=== PATIENT | female | born 1955 | race Caucasian/White ===

== ENCOUNTER 2020-10-20 13:37 | Emergency (ER) | payer OTHER ==
[~2020-10-20] VITALS: Ht 147.3 cm; Wt 72.6 kg
[2020-10-20 13:54] VITALS: BP 155/84
[2020-10-20 14:26] LABS: BASO % 0.7 % (0.0-1.0); EOS # 0.1 10*3/uL (0.0-0.4); EOS % 2.1 % (1.0-4.0); HEMATOCRIT 45.7 % (37.0-47.0); LYMPH # 1.3 10*3/uL (1.3-4.4); LYMPH % 21.6 % (27.0-41.0); MEAN CELL VOLUME 91.8 fl (81.0-99.0); MEAN CORPUSCULAR HGB 30.3 pg (27.0-31.0); MEAN PLATELET VOLUME 11.1 fl (9.6-12.3); MONO # 0.6 10*3/uL (0.1-1.0); MONO % 10.3 % (3.0-9.0); NEUT % 64.6 % (47.0-73.0); PLATELET COUNT AUTOMATED 191 10*3/uL (130-400); RED BLOOD COUNT 4.98 10*6/uL (4.10-5.10); RED CELL DISTRI WIDTH 14.2 % (0-14.5); WHITE BLOOD COUNT 6.1 10*3/uL (4.8-10.8)
[2020-10-20 14:42] LABS: ALBUMIN 3.3 gm/dl (3.1-4.5); ALKALINE PHOSPHATASE 133 U/L (45-117); BUN 18 mg/dl (7-24); CHLORIDE 104 mmol/L (98-107); CREATININE 1.01 mg/dL (0.55-1.02); POTASSIUM 4.2 mmol/L (3.5-5.1); SGOT/AST 31 IU/L (3-35); SGPT/ALT 39 U/L (12-78); SODIUM 138 mmol/L (136-145); TOTAL PROTEIN 8.2 gm/dL (6.4-8.2)
[2020-10-20 14:43] LABS: TROPONIN I < 0.015 ng/ml (<0.045)
== END 2020-10-20 16:40 | disposition home or self-care (01) ==
LOC: ED 13:37
PROVIDERS: Family Medicine
DX: R61 Generalized hyperhidrosis (principal); Z88.0 Allergy status to penicillin

== ENCOUNTER 2023-07-09 17:23 | Emergency (ER) | payer OTHER ==
[~2023-07-09] VITALS: Ht 147.3 cm; Wt 68.0 kg
[2023-07-09 17:40] VITALS: BP 152/74
[2023-07-09] MEDS ORDERED: Albuterol Sulf/Ipratropium 3 ML VIAL NEB ONE (17:50)
[2023-07-09] MEDS ORDERED: methylPREDNISolone sod succ 125 MG VIAL IV ONE (17:50)
[2023-07-09 18:13] LABS: BASO % 0.4 % (0.0-1.0); EOS # 0.1 10*3/uL (0.0-0.4); EOS % 1.4 % (1.0-4.0); HEMATOCRIT 50.8 % (37.0-47.0); LYMPH # 1.1 10*3/uL (1.3-4.4); LYMPH % 12.8 % (27.0-41.0); MEAN CELL VOLUME 92.7 fl (81.0-99.0); MEAN CORPUSCULAR HGB 30.5 pg (27.0-31.0); MEAN CORPUSCULAR HGB CONC 32.9 g/dl (33.0-37.0); MEAN PLATELET VOLUME 12.1 fl (9.6-12.3); MONO # 0.7 10*3/uL (0.1-1.0); MONO % 8.8 % (3.0-9.0); NEUT # 6.4 10*3/uL (2.3-7.9); NEUT % 76.2 % (47.0-73.0); PLATELET COUNT AUTOMATED 175 10*3/uL (130-400); RED BLOOD COUNT 5.48 10*6/uL (4.10-5.10); RED CELL DISTRI WIDTH 13.2 % (0-14.5); WHITE BLOOD COUNT 8.3 10*3/uL (4.8-10.8)
[2023-07-09 18:35] LABS: ALKALINE PHOSPHATASE 160 U/L (46-116); BUN 17 mg/dl (9-23); CHLORIDE 104 mmol/L (98-107); LIPASE 40 U/L (12-53); POTASSIUM 3.6 mmol/L (3.4-5.1); SGPT/ALT 43 U/L (5-49); TOTAL PROTEIN 8.1 gm/dL (6.0-8.0)
[2023-07-09 18:38] LABS: ACT PARTIAL THROMBO TIME 29.9 SECONDS (20.0-32.1)
[2023-07-09] MEDS ORDERED: ZITHROMAX250 MG PO (21:38)
[2023-07-09] MEDS ORDERED: PREDNISONE20 M1 PO (21:38)
== END 2023-07-09 21:53 | disposition home or self-care (01) ==
LOC: ED 17:23
PROVIDERS: Internal Medicine
DX: J44.1 Chronic obstructive pulmonary disease with (acute) exacerbation (principal); R79.82 Elevated C-reactive protein (CRP); R79.89 Other specified abnormal findings of blood chemistry; N18.31 Chronic kidney disease, stage 3a; D75.1 Secondary polycythemia; Z88.0 Allergy status to penicillin

== ENCOUNTER 2024-03-31 20:40 | Emergency (ER) | payer MEDICARE ==
[~2024-03-31] VITALS: Ht 149.8 cm; Wt 81.6 kg
[~2024-03-31 20:40] MED LIST: ASPIRIN ADULT L81 M2 PO; ATORVASTATIN CA40 M1 PO; ENTRESTO 24 MG1 EACH PO; LASIX40 MG PO; METOPROLOL SUCC25 M2 PO; PREDNISONE20 M1 PO; STIOLTO RESPIMAT4 GM INH; VENT7GM INH; ZITHROMAX250 MG PO
[2024-03-31 20:55] VITALS: BP 172/58
[2024-03-31] MEDS ORDERED: Acetaminophen/Hydrocodone HP 10/325 PO ONE (20:55)
[2024-03-31] MEDS ORDERED: Amoxicillin/Clavulanate Pota 875 MG TAB PO ONE (20:55)
[2024-03-31 21:19] LABS: BASO % 0.4 % (0.0-1.0); EOS # 0.2 10*3/uL (0.0-0.4); EOS % 1.7 % (1.0-4.0); MEAN CELL VOLUME 100.2 fl (81.0-99.0); MEAN CORPUSCULAR HGB CONC 30.9 g/dl (33.0-37.0); MEAN PLATELET VOLUME 11.2 fl (9.6-12.3); MONO # 1.2 10*3/uL (0.1-1.0); MONO % 10.8 % (3.0-9.0); NEUT # 7.7 10*3/uL (2.3-7.9); NEUT % 72.8 % (47.0-73.0); PLATELET COUNT AUTOMATED 250 10*3/uL (130-400); RED BLOOD COUNT 4.39 10*6/uL (4.10-5.10); RED CELL DISTRI WIDTH 13.3 % (0-14.5); WHITE BLOOD COUNT 10.6 10*3/uL (4.8-10.8)
[2024-03-31] MEDS ORDERED: ZITHROMAX250 MG PO (22:04)
[2024-03-31] MEDS ORDERED: PREDNISONE20 M1 PO (22:04)
[2024-03-31] MEDS ORDERED: AZITHROMYCIN 250 MG TAB PO ONE (22:05)
[2024-03-31] MEDS ORDERED: predniSONE 20 MG TAB PO ONE (22:05)
== END 2024-03-31 22:15 | disposition home or self-care (01) ==
LOC: ED 20:40
PROVIDERS: Nurse Practitioner Family
DX: J44.1 Chronic obstructive pulmonary disease with (acute) exacerbation (principal); Z20.822 Contact with and (suspected) exposure to COVID-19; R22.0 Localized swelling, mass and lump, head; I25.2 Old myocardial infarction; Z88.0 Allergy status to penicillin; Z90.49 Acquired absence of other specified parts of digestive tract; Z95.5 Presence of coronary angioplasty implant and graft; Z87.891 Personal history of nicotine dependence

== ENCOUNTER 2024-04-15 14:44 | Emergency (ER) | payer MEDICARE ==
[~2024-04-15] VITALS: Ht 147.3 cm; Wt 65.8 kg
[2024-04-15 14:53] VITALS: BP 114/72
== END 2024-04-15 15:13 | disposition left against medical advice (07) ==
LOC: ED 14:44
DX: H57.89 Other specified disorders of eye and adnexa (principal); Z53.21 Procedure and treatment not carried out due to patient leaving prior to being seen by health care provider; Z88.0 Allergy status to penicillin

== ENCOUNTER 2024-04-17 10:31 | Inpatient (IN) | payer MEDICARE ==
[~2024-04-17] VITALS: Ht 147.3 cm; Wt 64.9 kg
[2024-04-17 10:38] VITALS: BP 113/73
[2024-04-17] MEDS ORDERED: Dexamethasone Sodium Phospha 20 MG/5 ML VIAL IV ONE (10:45)
[2024-04-17] MEDS ORDERED: diphenhydrAMINE hydrochloride 50 MG/ML VIAL IV ONE (10:45)
[2024-04-17] MEDS ORDERED: FAMOTIDINE 50 ML IV ONE (10:45)
[2024-04-17] MEDS ORDERED: EPINEPHrine Hydrochloride 1 MG/ML AMP IM ONE (10:50)
[2024-04-17 11:18] LABS: BASO % 0.2 % (0.0-1.0); EOS # 0.1 10*3/uL (0.0-0.4); EOS % 0.4 % (1.0-4.0); MEAN CELL VOLUME 101.1 fl (81.0-99.0); MEAN CORPUSCULAR HGB 31.3 pg (27.0-31.0); MEAN CORPUSCULAR HGB CONC 30.9 g/dl (33.0-37.0); MONO # 1.5 10*3/uL (0.1-1.0); MONO % 10.2 % (3.0-9.0); NEUT % 77.6 % (47.0-73.0); PLATELET COUNT AUTOMATED 226 10*3/uL (130-400); RED BLOOD COUNT 4.35 10*6/uL (4.10-5.10); RED CELL DISTRI WIDTH 13.3 % (0-14.5); WHITE BLOOD COUNT 14.2 10*3/uL (4.8-10.8)
[2024-04-17 11:35] LABS: POTASSIUM 3.9 mmol/L (3.4-5.1)
[2024-04-17] MEDS ORDERED: JARDIANCE10 MG PO (11:39)
[2024-04-17] MEDS ORDERED: ALDACTONE25 MG PO (11:39)
[2024-04-17] MEDS ORDERED: HYDROXYZINE HCL25 MG PO (11:40)
[2024-04-17] MEDS ORDERED: Vancomycin Hydrochloride 250 ML IV ONE (11:40)
[2024-04-17] MEDS ORDERED: CEFEPIME HCL IN DEXTROSE 5 % 50 ML IV ONE (11:40)
[2024-04-17] MEDS ORDERED: SODIUM CHLORIDE 0.9% 1,000 ML IV ONE (12:20)
[2024-04-17] MEDS ORDERED: MORPHINE Sulfate 2 MG/ML SYR IV PRN (13:05)
[2024-04-17] MEDS ORDERED: BISACODYL 5 MG TAB PO PRN (13:05)
[2024-04-17] MEDS ORDERED: Acetaminophen/Hydrocodone 5 MG/325 MG TABLET PO PRN (13:05)
[2024-04-17] MEDS ORDERED: Magnesium Hydroxide 30 ML UDC PO PRN (13:05)
[2024-04-17] MEDS ORDERED: ACETAMINOPHEN 325 MG TAB PO PRN (13:05)
[2024-04-17] MEDS ORDERED: ACETAMINOPHEN 650 MG SUPP R PRN (13:05)
[2024-04-17] MEDS ORDERED: BISACODYL 10 MG SUPP R PRN (13:05)
[2024-04-17] MEDS ORDERED: TEMAZEPAM 15 MG CAP PO PRN (13:05)
[2024-04-17] MEDS ORDERED: Ondansetron Hydrochloride 4 MG/2 ML VIAL IV PRN (13:05)
[2024-04-17] MEDS ORDERED: Pantoprazole Sodium 40 MG TAB PO PRN (13:15)
[2024-04-17] MEDS ORDERED: diphenhydrAMINE hydrochloride 25 MG CAP PO PRN (15:05)
[2024-04-17 16:35] VITALS: BP 100/76
[2024-04-17] MEDS ORDERED: Albuterol Sulf/Ipratropium 3 ML VIAL NEB SCH (18:25)
[2024-04-17 20:00] VITALS: BP 146/76
[2024-04-17] MEDS ORDERED: ATORVASTATIN CALCIUM 40 MG TABLET PO SCH (22:00)
[2024-04-18] VITALS: BP 129/54
[2024-04-18] MEDS ORDERED: diphenhydrAMINE hydrochloride 50 MG/ML VIAL IV SCH
[2024-04-18 04:00] VITALS: BP 128/63
[2024-04-18 05:22] LABS: ALKALINE PHOSPHATASE 148 U/L (46-116); BUN 17 mg/dl (9-23); CHLORIDE 105 mmol/L (98-107); CHOLESTEROL 180 mg/dL (<200); FREE T4 1.24 ng/dl (0.89-1.76); LDL CHOLESTEROL 84 mg/dL (9-159); POTASSIUM 3.8 mmol/L (3.4-5.1); SGPT/ALT 53 U/L (5-49); TOTAL PROTEIN 7.3 gm/dL (6.0-8.0); TRIGLYCERIDES 74 mg/dl (<150)
[2024-04-18 06:13] LABS: MEAN CELL VOLUME 99.3 fl (81.0-99.0); MEAN CORPUSCULAR HGB 30.9 pg (27.0-31.0); MEAN CORPUSCULAR HGB CONC 31.2 g/dl (33.0-37.0); MEAN PLATELET VOLUME 11.3 fl (9.6-12.3); PLATELET COUNT AUTOMATED 221 10*3/uL (130-400); RED BLOOD COUNT 4.33 10*6/uL (4.10-5.10); RED CELL DISTRI WIDTH 13.4 % (0-14.5); WHITE BLOOD COUNT 16.1 10*3/uL (4.8-10.8)
[2024-04-18 06:15] LABS: MANUAL DIFF REFLEX YES
[2024-04-18 07:23] LABS: TOTAL CELLS COUNTED 100 #CELLS
[2024-04-18 07:24] LABS: PLATELET SUFFICIENCY NORMAL (NORMAL)
[2024-04-18 08:00] VITALS: BP 136/71
[2024-04-18] MEDS ORDERED: METOPROLOL SUCCINATE XR 50 MG TAB PO ONE (09:10)
[2024-04-18] MEDS ORDERED: ASPIRIN ENTERIC COATED 81 MG TAB PO SCH (10:00)
[2024-04-18] MEDS ORDERED: Enoxaparin Sodium 40 MG/0.4 ML SYR SC SCH (10:00)
[2024-04-18] MEDS ORDERED: METOPROLOL SUCCINATE XR 25 MG TAB PO SCH (10:00)
[2024-04-18 12:00] VITALS: BP 128/90
[2024-04-18] MEDS ORDERED: CEFEPIME HCL IN DEXTROSE 5 % 50 ML IV SCH (12:00)
[2024-04-18] MEDS ORDERED: Vancomycin Hydrochloride 1,000 MG in SODIUM CHLORIDE 0.9% 250 ML IV SCH (14:00)
[2024-04-18 16:00] VITALS: BP 104/72
[2024-04-18] MEDS ORDERED: Albuterol Sulf/Ipratropium 3 ML VIAL NEB SCH (18:25)
[2024-04-18] MEDS ORDERED: methylPREDNISolone sod succ 40 MG VIAL IV SCH (18:25)
[2024-04-18 20:00] VITALS: BP 119/69
[2024-04-18] MEDS ORDERED: cefTRIAXone Sodium 1 GM in SYRINGE INFUSION 10 ML IV SCH (22:00)
[2024-04-18] MEDS ORDERED: NYSTATIN 15 GM BOT T SCH (22:00)
[2024-04-19] VITALS: BP 136/74
[2024-04-19 06:39] LABS: POTASSIUM 4.6 mmol/L (3.4-5.1)
[2024-04-19 06:40] LABS: HEMATOCRIT 43.3 % (37.0-47.0); MEAN CELL VOLUME 102.1 fl (81.0-99.0); MEAN CORPUSCULAR HGB 31.1 pg (27.0-31.0); MEAN CORPUSCULAR HGB CONC 30.5 g/dl (33.0-37.0); MEAN PLATELET VOLUME 11.3 fl (9.6-12.3); PLATELET COUNT AUTOMATED 232 10*3/uL (130-400); RED BLOOD COUNT 4.24 10*6/uL (4.10-5.10); RED CELL DISTRI WIDTH 13.6 % (0-14.5)
[2024-04-19 06:43] LABS: MANUAL DIFF REFLEX YES
[2024-04-19 07:42] LABS: TOTAL CELLS COUNTED 100 #CELLS
[2024-04-19 07:44] LABS: BURR CELLS FEW
[2024-04-19 07:46] LABS: PLATELET SUFFICIENCY NORMAL (NORMAL)
[2024-04-19 08:00] VITALS: BP 135/83
[2024-04-19] MEDS ORDERED: METOPROLOL SUCCINATE XR 25 MG TAB PO SCH ×2 (10:00)
[2024-04-19 12:00] VITALS: BP 125/87
[2024-04-19] MEDS ORDERED: methylPREDNISolone sod succ 40 MG VIAL IV SCH (14:00)
[2024-04-19 16:00] VITALS: BP 129/52
[2024-04-19 20:00] VITALS: BP 106/66
[2024-04-20] VITALS: BP 105/77
[2024-04-20 04:00] VITALS: BP 147/69
[2024-04-20 05:55] LABS: POTASSIUM 4.5 mmol/L (3.4-5.1)
[2024-04-20 06:16] LABS: HEMATOCRIT 42.2 % (37.0-47.0); MEAN CELL VOLUME 102.4 fl (81.0-99.0); MEAN CORPUSCULAR HGB 30.8 pg (27.0-31.0); MEAN CORPUSCULAR HGB CONC 30.1 g/dl (33.0-37.0); MEAN PLATELET VOLUME 11.4 fl (9.6-12.3); PLATELET COUNT AUTOMATED 225 10*3/uL (130-400); RED BLOOD COUNT 4.12 10*6/uL (4.10-5.10); RED CELL DISTRI WIDTH 13.5 % (0-14.5); WHITE BLOOD COUNT 18.5 10*3/uL (4.8-10.8)
[2024-04-20 06:20] LABS: MANUAL DIFF REFLEX YES
[2024-04-20 07:27] LABS: PLATELET SUFFICIENCY NORMAL (NORMAL); POLYCHROMASIA SLIGHT; TOTAL CELLS COUNTED 100 #CELLS
[2024-04-20 07:28] LABS: BURR CELLS FEW
[2024-04-20 08:00] VITALS: BP 112/74
[2024-04-20 12:00] VITALS: BP 130/65
[2024-04-20] MEDS ORDERED: ALLERGY MEDICAT25 MG PO (12:07)
[2024-04-20] MEDS ORDERED: METOPROLOL SUCC25 M2 PO (12:07)
[2024-04-20] MEDS ORDERED: VIBRA-TAB100 MG PO (12:07)
[2024-04-20] MEDS ORDERED: PREDNISONE10 MG PO (12:07)
== END 2024-04-20 13:56 | disposition home or self-care (01) | DRG 871 ==
LOC: ED 10:31 → ICCU 12:36 → EDHOLD 12:36 → 4E 14:46 → EDHOLD 15:38 → ICCU 16:08 → 4E 04-19 18:35
PROVIDERS: Internal Medicine; Student in an Organized Health Care Education/Training Program; ADMIT Internal Medicine; ATTEND Internal Medicine
DX: A41.9 Sepsis, unspecified organism (principal); N17.0 Acute kidney failure with tubular necrosis; L03.213 Periorbital cellulitis; J96.11 Chronic respiratory failure with hypoxia; J44.1 Chronic obstructive pulmonary disease with (acute) exacerbation; T78.3XXA Angioneurotic edema, initial encounter; R65.20 Severe sepsis without septic shock; R73.9 Hyperglycemia, unspecified; I25.10 Atherosclerotic heart disease of native coronary artery without angina pectoris; N61.0 Mastitis without abscess; S02.2XXA Fracture of nasal bones, initial encounter for closed fracture; D75.89 Other specified diseases of blood and blood-forming organs; W18.30XA Fall on same level, unspecified, initial encounter; Z88.0 Allergy status to penicillin; Z90.49 Acquired absence of other specified parts of digestive tract; Z87.891 Personal history of nicotine dependence; Z82.49 Family history of ischemic heart disease and other diseases of the circulatory system; I25.2 Old myocardial infarction; Z79.82 Long term (current) use of aspirin; Z79.899 Other long term (current) drug therapy; Y93.89 Activity, other specified; Y92.89 Other specified places as the place of occurrence of the external cause; Y99.8 Other external cause status